=== PATIENT | female | born 1935 | race African-American/Black ===

== ENCOUNTER 2017-05-05 07:17 | Inpatient (IN) | payer MEDICARE, OTHER ==
[2017-04-22 10:56] LABS: BASOPHILS 0.5 %; BASOPHILS ABSOLUTE 0.03 10/3/uL (0.0-0.16); EOSINOPHILS 1.1 %; EOSINOPHILS ABSOLUTE 0.07 10/3/uL (0.0-0.53); HEMATOCRIT 40.9 % (36.0-48.0); HEMOGLOBIN 13.7 g/dL (12.0-16.0); LYMPHOCYTES 33.2 %; LYMPHOCYTES ABSOLUTE 2.08 10/3/uL (0.67-4.30); MEAN CORPUS HGB CONC 33.5 g/dL (32.0-36.0); MEAN CORPUSCULAR HEMOGLOB 30.5 pg (26.0-34.0); MEAN CORPUSCULAR VOLUME 91.1 fL (80-100); MEAN PLATELET VOLUME 10.5 fL (9.2-13.0); MONOCYTES 5.1 %; MONOCYTES ABSOLUTE 0.32 10/3/uL (0.21-1.20); NEUTROPHILS 60.1 %; NEUTROPHILS ABSOLUTE 3.76 10/3/uL (2.02-8.40); PLATELET COUNT 188 10/3/uL (150-400); RBC DISTRIBUTION WIDTH 13.6 % (12.0-16.0); RED CELL COUNT 4.49 10/6/uL (4.0-5.6); WHITE BLOOD CELLS 6.3 10/3/uL (4.5-10.5)
[2017-04-22 10:57] LABS: MANUAL DIFF NO %
[2017-04-22 11:06] LABS: INTERNATIONAL NORMAL RATI 1.1 UNITS (-); PROTIME (NOT ORD) 14.1 SEC (12.0-14.5)
[2017-04-22 11:12] LABS: A/G RATIO 0.9 (0.7-1.9); ALBUMIN 4.4 G/DL (3.5-5.0); ALKALINE PHOSPHATASE 114 U/L (45-117); BUN (BLOOD UREA NITROGEN) 11 MG/DL (6-23); CALCIUM, SERUM 9.9 MG/DL (8.5-10.4); CHLORIDE, SERUM 105 MMOL/L (96-112); CO2 (CARBON DIOXIDE) 28 MMOL/L (24-34); CREATININE 0.96 MG/DL (0.55-1.02); GFR AFRICAN AMERICAN 63 ML/MIN (>=60); GFR NON AFRICAN AMERICAN 55 ML/MIN (>=60); GLOBULIN 4.8 G/DL (2.5-4.1); GLUCOSE, SERUM 105 MG/DL (60-99); POTASSIUM, SERUM 3.8 MMOL/L (3.5-5.3); SGOT(AST) 24 U/L (5-40); SGPT(ALT) 21 U/L (5-65); SODIUM, SERUM 138 MMOL/L (135-148); TOTAL BILIRUBIN 0.9 MG/DL (0-1.2); TOTAL PROTEIN 9.2 G/DL (6.0-8.5)
[2017-04-22 11:59] LABS: ASCORBIC ACID (UR NOT ORDER) NEG (NEG); BILIRUBIN, URINE NEGATIVE (NEG); KETONE, URINE NEGATIVE (NEG); LEUKOCYTE ESTERASE(NOT OR TRACE (NEG); WBC (NOT ORDERED) (RFLEX) 1 (0-5)
--- NOTE | ~2017-05-05 | OP ---
Record Of Operation [facility] [address] [place]. [address] NAME: GLORIA MADSEN : 31 STATUS : ADM IN PAT#: [id number] AGE: 81 ADM/REG DATE : 05/05/17 MR#: [id number] REPORT SERV DATE: 05/05/17 DICTATED BY: NICOLAS NJ DATE: 05/05/17 REPORT STATUS : Draft TRANSCRIBED BY: MODL DATE: 05/05/17 DATE OF PROCEDURE: 05/05/2017 PREOPERATIVE DIAGNOSIS: Left knee arthritis. POSTOPERATIVE DIAGNOSIS: Left knee arthritis. PROCEDURE PERFORMED: Left total knee arthroplasty. LABORER DEMOLITION: Rosanne Flores. ANESTHESIA: General with adductor block and local infusion. ANESTHESIA: General. PROCEDURE IN DETAIL: The patient is clearly identified and after obtaining informed consent is brought to the operating room at [facility] where anesthesia is induced uneventfully with excellent anesthetic effect. Subsequently, the affected extremity is prepped and draped in the usual manner and after an appropriate time-out procedure is performed, via an anterior approach, the skin is divided, fascial planes are elevated, paramedial approach to the knee is made. The structures themselves are elevated, excised, and debrided were appropriate, whereupon the patella is carefully everted, calipered, and planed and with the size and type being reproduced with the appropriate-size patella, trialing is performed successfully. At this point, the patella is then carefully subluxed laterally, the knee is flexed, osteophytes around the distal femur are removed, followed by the ACL being divided. The femoral canal is entered and vented, at which point with the intramedullary guide being utilized, the distal femoral cut is made. At this point, the tibia is carefully subluxed anteriorly. The surrounding soft tissues to the tibia are protected with Hohmann retractors, at which point the extramedullary guide is utilized to perform the proximal tibial cut and after cleansing these tissues, the spacer block is utilized in extension to confirm excellent extension, stability, and alignment. The guiding pins are then all carefully removed and the knee is then flexed. The femur is sized, whereupon the anterior, posterior, chamfer, and box cuts are made appropriately. The proximal tibia then is assessed. Osteophytes and surrounding soft tissues are removed and debrided were appropriate. Posterior osteophytes are removed as well. The menisci are excised and thus concluding trialings performed successfully. The proximal tibia then is carefully prepared utilizing proper cement technique. The permanent implants have been carefully placed into position uneventfully where upon copious irrigations performed, the permanent tibial implants applied and thus concluded. The joint was then copiously irrigated, at which point it is closed carefully in layers including Vicryl and grace for the skin, at which point Aquacel sterile dressing is applied. The patient is allowed to awaken and is transferred to the bed and subsequently to the recovery room in stable condition having tolerated the procedure well. ESTIMATED BLOOD LOSS: [address]. [address] [facility] [address] [place]. [address] NAME: GLORIA MADSEN : 33 STATUS : ADM IN [facility]#: [id number] AGE: 81 ADM/REG DATE : 05/05/17 MR#: [id number] REPORT SERV DATE: 05/05/17 DICTATED BY: NICOLAS NJ DATE: 05/05/17 REPORT STATUS : Draft TRANSCRIBED BY: FANI DATE: 05/05/17 FLUIDS: 1400. TOURNIQUET TIME: 36 minutes. PATHOLOGY: Sent specimen. MICROBIOLOGY: None. COMPLICATIONS: None. SPONGE AND NEEDLE COUNTS: Reportedly correct. ANTIBIOTICS: Administered appropriately preoperatively and ordered to be discontinued within 23 hours. IMPLANTS: Attune knee by DePuy, femur 4 standard, tibia 4, patella 35, polyethylene /. ANUPAM/FANI Nicolas Nj M.D. / [id number] CC: Nicolas Nj M.D.
--- NOTE | ~2017-05-05 | DS ---
Discharge Summary [facility] [address] [place]. [address] NAME: GLORIA MADSEN : 31 STATUS : DIS IN PAT#: [id number] AGE: 81 ADM/REG DATE : 05/05/17 MR#: [id number] REPORT SERV DATE: 05/20/17 DICTATED BY: NICOLAS NJ DATE: 05/20/17 REPORT STATUS : Draft TRANSCRIBED BY: FANI DATE: 05/20/17 Data Collection from hospitalization DISCHARGE DIAGNOSES: 1. Left knee arthritis. 2. Hypertension. 3. Gastroesophageal reflux disease. 4. History of nephrolithiasis. 5. Glaucoma. CONSULTATIONS: None. PROCEDURES PERFORMED: Left total knee arthroplasty on 05/05/2017. PATHOLOGY: Bone and soft tissue, left knee, total knee arthroplasty - degenerative changes, fatty marrow with areas of fibrosis, synovium, papillary hyperplasia. No tumor or active inflammation. MEDICATIONS: Tylenol 500 mg every six hours as needed, Tenormin 50 mg every morning, Adalat 30 mg every morning, Prilosec 40 mg every morning, Roxicodone 5-10 mg every four hours as needed, Zantac 150 mg every morning, Refresh one drop as needed, Timolol one drop twice a day, and Coumadin 5 mg daily. CONDITION AT DISCHARGE: Stable. DISPOSITION: The patient was discharged home on a regular diet with activities as instructed. She would follow up with me on 05/19/2017. [facility] at [facility] on 05/09/2017 for physical therapy, and would follow up for labs at [facility] on 05/09/2017. HOSPITAL COURSE: This is an 81-year-old female, who had left knee arthritis. She complained of bilateral knee pain left greater than right. She said she had pain in her knee for a while and they have gradually worsened. Sometimes her knees give away. She had trouble with peers taking them one at a time. Treatment options were discussed and it was elected to proceed with surgical intervention. She was admitted to the hospital at this time for further evaluation and treatment. Upon admission, she was taken to the operating room where she underwent the above-mentioned procedure. She tolerated this well and there were no complications. On postop day #1, she was evaluated by Occupational and Physical Therapy. She was up sitting in a bedside chair. She was in no acute distress. She was doing well. GLENDY hose were in place. Protonix was continued. Blood pressure was controlled. Over the next couple of days, she continued to do well. Discharge planning was performed. On 05/08/2017, she continued to do well. Discharge instructions were given. Due to her improved and stable condition, she was discharged home with the above-stated instructions. Information collected by: Marylou Solano Discharge Summary [address] [address] NAME: GLORIA MADSEN : 31 STATUS : DIS IN PAT#: [id number] AGE: 81 ADM/REG DATE : 05/05/17 MR#: [id number] REPORT SERV DATE: 05/20/17 DICTATED BY: NICOLAS NJ DATE: 05/20/17 REPORT STATUS : Draft TRANSCRIBED BY: FANI DATE: 05/20/17 I submit the above information as my discharge summary. TG/FANI Nicolas Nj M.D. / [id number] CC: Vonda Oates MD
[~2017-05-05 07:17] MED LIST: ACET500CAP PO; ADALAT CC30 MG PO; ATEN50 PO; PRILOSEC40 MG PO; REFRES1 OPH; TIMOLOL MAL0.5 % OPH; ZANTAC150 MG PO
[2017-05-06 04:08] LABS: HEMOGLOBIN 11.1 g/dL (12.0-16.0)
[2017-05-06 04:10] LABS: HEMATOCRIT 32.3 % (36.0-48.0)
[2017-05-06 04:16] LABS: INTERNATIONAL NORMAL RATI 1.2 UNITS (-); PROTIME (NOT ORD) 14.6 SEC (12.0-14.5)
[2017-05-06 04:20] LABS: BUN (BLOOD UREA NITROGEN) 10 MG/DL (6-23); CALCIUM, SERUM 9.3 MG/DL (8.5-10.4); CHLORIDE, SERUM 104 MMOL/L (96-112); CO2 (CARBON DIOXIDE) 26 MMOL/L (24-34); CREATININE 0.97 MG/DL (0.55-1.02); GFR AFRICAN AMERICAN 63 ML/MIN (>=60); GFR NON AFRICAN AMERICAN 54 ML/MIN (>=60); POTASSIUM, SERUM 3.9 MMOL/L (3.5-5.3); SODIUM, SERUM 138 MMOL/L (135-148)
[2017-05-06 04:22] LABS: GLUCOSE, SERUM 148 MG/DL (60-99)
[2017-05-07 04:37] LABS: INTERNATIONAL NORMAL RATI 1.4 UNITS (-)
[2017-05-07 04:48] LABS: HEMATOCRIT 28.8 % (36.0-48.0); HEMOGLOBIN 9.8 g/dL (12.0-16.0)
[2017-05-07] MEDS ORDERED: C5 PO (13:50)
[2017-05-07] MEDS ORDERED: OXYCOD PO (13:50)
[2017-05-08 04:34] LABS: HEMATOCRIT 28.9 % (36.0-48.0); HEMOGLOBIN 9.7 g/dL (12.0-16.0)
[2017-05-08 04:43] LABS: INTERNATIONAL NORMAL RATI 1.7 UNITS (-); PROTIME (NOT ORD) 19.8 SEC (12.0-14.5)
[2017-06-17] MEDS ORDERED: [UNRECOGNIZED DRUG - OTHER] OPH (13:17)
== END 2017-05-08 13:10 | disposition home or self-care (01) | DRG 470 ==
LOC: SDC/OF 07:17 → PACU 12:30 → 3SO 13:16
PROVIDERS: Orthopaedic Surgery
PROC: 0SRD0JZ Replacement of Left Knee Joint with Synthetic Substitute, Open Approach (ICD-10-PCS; principal; 2017-05-05 09:30)
DX: M17.0 Bilateral primary osteoarthritis of knee (principal); I10 Essential (primary) hypertension; K21.9 Gastro-esophageal reflux disease without esophagitis; H40.9 Unspecified glaucoma; Z79.899 Other long term (current) drug therapy; Z88.5 Allergy status to narcotic agent; Z87.442 Personal history of urinary calculi
CPT/HCPCS: 36415; 71020; 80048; 80053; 81001; 85014; 85018; 85025; 85610; 85730; 86850; 86900; 86901; 87641; 88305; 88311; 93005; 97110-GP; 97161-GP; 97165-GO; 97530-GP; A9270-GY; C1776; G8978-CK-GP; G8979-CI-GP; J0690; J1885; J2270; J2405; J2795; J3010